=== PATIENT | male | born 1940 | race Caucasian/White ===

== ENCOUNTER 2018-05-03 17:31 | Inpatient (IN) | payer OTHER ==
[~2018-05-03] VITALS: Ht 167.6 cm; Wt 87.7 kg
[~2018-05-03 17:31] MED LIST: A/B OTIC15 ML; ANUHCS PR; METP PO; PRAVACHOL10 MG PO; TERAZOSIN HCL2 MG PO; ZESTRIL20 MG PO
[2018-05-03 18:57] LABS: BASOPHIL % 0.3 % (0-2); PLATELET COUNT 169 x10^3mcL (130-400)
[2018-05-03 18:58] LABS: RED CELL DISTRIBUTION WIDTH 15.5 % (11.5-14.5)
[2018-05-03 19:04] LABS: CALCIUM 8.9 mg/dL (8.5-10.1); CARBON DIOXIDE 27.4 mmol/L (21-32); CHLORIDE SERUM 109 mmol/L (98-107); CREATININE SERUM 1.1 mg/dL (0.7-1.3); GLUCOSE SERUM 109 mg/dL (74-106); POTASSIUM SERUM 3.7 mmol/L (3.5-5.1); SODIUM SERUM 144 mmol/L (136-145)
[2018-05-03 19:10] LABS: ALKALINE PHOSPHATASE 87 U/L (46-116); ALT/SGPT 10 U/L (16-63); AST/SGOT 9 U/L (15-37); BILIRUBIN TOTAL 0.52 mg/dL (0.20-1.00); TOTAL PROTEIN, SERUM 6.2 g/dL (6.4-8.2)
[2018-05-03 19:19] LABS: ALBUMIN 3.3 g/dL (3.4-5.0)
[2018-05-03] MEDS ORDERED: ENALAPRIL MALE2.5 MG PO (20:07)
[2018-05-03 20:33] VITALS: BP 100/62
[2018-05-03 21:53] VITALS: Ht 167.6 cm; Wt 87.7 kg
[2018-05-04 06:09] VITALS: BP 111/61
[2018-05-04 07:02] LABS: CALCIUM 8.6 mg/dL (8.5-10.1); CARBON DIOXIDE 26.2 mmol/L (21-32); CHLORIDE SERUM 109 mmol/L (98-107); GLUCOSE SERUM 122 mg/dL (74-106); POTASSIUM SERUM 3.6 mmol/L (3.5-5.1); SODIUM SERUM 142 mmol/L (136-145)
[2018-05-04 07:53] LABS: BASOPHIL % 0.5 % (0-2); PLATELET COUNT 157 x10^3mcL (130-400)
[2018-05-04 07:59] LABS: RED CELL DISTRIBUTION WIDTH 15.1 % (11.5-14.5)
[2018-05-04 08:43] VITALS: BP 119/57
[2018-05-04 14:49] VITALS: BP 108/54
[2018-05-04 17:14] VITALS: BP 122/49
[2018-05-04 17:41] VITALS: BP 122/49
== END 2018-05-04 19:19 | disposition home or self-care (01) | DRG 378 ==
LOC: ED 17:31 → MU 20:00
PROVIDERS: Emergency Medicine; Internal Medicine Gastroenterology; Internal Medicine Pulmonary Disease
PROC: 0DBH8ZX Excision of Cecum, Via Natural or Artificial Opening Endoscopic, Diagnostic (ICD-10-PCS; principal; 2018-05-04 13:00)
PROC: 0W3P8ZZ Control Bleeding in Gastrointestinal Tract, Via Natural or Artificial Opening Endoscopic (ICD-10-PCS; 2018-05-04 13:00)
DX: K62.5 Hemorrhage of anus and rectum (principal); D62 Acute posthemorrhagic anemia; K57.32 Diverticulitis of large intestine without perforation or abscess without bleeding; I10 Essential (primary) hypertension; E78.00 Pure hypercholesterolemia, unspecified; F17.210 Nicotine dependence, cigarettes, uncomplicated; K64.8 Other hemorrhoids
CPT/HCPCS: 45378; 46221; J1200; J1610; J2250; J2310; J3010; J3490; Q0092